=== PATIENT | male | born 2005 | race Two or more races ===

== ENCOUNTER 2023-01-28 21:15 | Emergency (ER) | payer BC, MEDICAID ==
[~2023-01-28] VITALS: Ht 177.8 cm; Wt 67.0 kg
[2023-01-28] MEDS ORDERED: ONDANSETRON HCL 4 MG/2 ML VIAL IM ONE (21:45)
[2023-01-28] MEDS ORDERED: HYDROmorphone HCL 2 MG/ML VL/or syr IM ONE (21:45)
[2023-01-28 22:30] VITALS: PULSE 103; RESP 20; O2SAT 100
[2023-01-28] MEDS ORDERED: HYDROmorphone HCL 2 MG/ML VL/or syr IV ONE (23:45)
[2023-01-29] MEDS ORDERED: IBUP-1455 PO (00:06)
[2023-01-29 02:17] VITALS: BP 140/69; PULSE 82; RESP 16; TEMP 97.5; O2SAT 97
== END 2023-01-29 02:40 | disposition home or self-care (01) ==
LOC: ER 21:15
DX: S83.004A Unspecified dislocation of right patella, initial encounter (principal); Z88.1 Allergy status to other antibiotic agents; X50.1XXA Overexertion from prolonged static or awkward postures, initial encounter; Y93.89 Activity, other specified; Y92.89 Other specified places as the place of occurrence of the external cause; Y99.8 Other external cause status
CPT/HCPCS: 27560; 73562; 96372; 96374; 99284; J1170; J2405